=== PATIENT | male | born 1945 | race Caucasian/White ===

== ENCOUNTER 2016-08-20 18:12 | Inpatient (IN) | payer MEDICARE, OTHER ==
[~2016-08-20] VITALS: Ht 188 cm; Wt 85.3 kg
[2016-08-20] MEDS ORDERED: MAG HYDROX/AL HYDROX/SIMETH 30 ML UDC PO PRN (22:00)
[2016-08-20] MEDS ORDERED: ACETAMINOPHEN 325 MG TABLET PO PRN (22:00)
[2016-08-20] MEDS ORDERED: MAGNESIUM HYDROXIDE 30 ML UDC PO PRN (22:00)
--- NOTE | 2016-08-20 22:00 | NUR ---
GPS SENIOR PUBLICATIONS SPECIALIST NOTES: ADMITTED A 71 YEAR OLD MALE FROM [facility] ON 5150 HOLD FOR DANGER TO OTHERS (DTO). PER HOLD THE PATIENT IS DIAGNOSED TO HAVE BRAIN CANCER AND HIS TREATMENT IS MESSING WITH HIM AND ADMITS THAT HE NEEDS HELP. SON LIVES WITH PATIENT AND THAT PATIENT WANTS TO LEAVE HOME, WHEN ASKED WHERE TO, PATIENT STATED "LEAVE MY WAY OR I'LL PUNCH YOU", PATIENT PUT SON IN HEADLOCK WHICH THE SON GOT OUT OF, PATIENT THEN TRIED TO JUMP OUT OF THE [place] WHICH WAS STOPPED BY THE SON. PATIENT CAME INTO THE UNIT ESCORTED BY AMBULANCE STAFF. PATIENT'S AND SON WAS ALSO WITH HIM DURING THE TRANSPORT. HE WAS THEN USHERED TO HIS BED. PATIENT IS AMBULATORY. UPON FACE TO FACE EVALUATION, PATIENT IS ALERT AND ORIENTED X2-3, APPEARS UNKEMPT, DISHEVELED AND DISORGANIZED. HYPERVERBAL AT TIMES. ABLE TO STATE HIS DATE, CURRENT YEAR AND PRESIDENT, THE REASON FOR BEING ADMITTED HERE IN THE PSYCHE UNIT. SKIN AND BODY ASSESSMENT DONE WITH JOVANNA PINEDA. PATIENT IS CLEAR OF ANY WOUNDS OR REDNESS. ODETTE CATH ON RIGHT UPPER CHEST NOTED, PICTURE TAKEN AND PLACED IN THE CHART. BELONGINGS AND CONTRABAND CHECKED. PATIENT WAS ABLE TO SIGN ADMISSION PAPERS. ORIENTATION TO UNIT, STAFF AND CARE PLAN DONE. PATIENT EXPRESSED THAT HE DOES NOT WANT ANY VISIT, TELEPHONE CALL FROM THE AND THE SON, HE ALSO WISHED TO HAVE NO INFORMATION DISCLOSED TO AND SON. HE JUST WANTS HIS BEST FRIEND SHANT LUDWIG AND SISTER JES PEREZ TO KNOW OF THIS ADMISSION. PATIENT THEN INFORMED THAT WE WILL RELAY THE SAID MATTER TO THE [facility] NURSE STAFF. Q15 MIN CHECKS INITIATED. TOILETRIES PROVIDED. PROVIDED FOOD AND SNACKS. KEPT PATIENT WARM, DRY AND COMFORTABLE. WILL MONITOR PATIENT FOR MOOD SAFETY AND BEHAVIOR. WILL ENDORSE PATIENT TO DAY SHIFT NURSE FOR CONTINUITY OF CARE. Addendum: 08/21/16 at 0632 by ABDULKADIR BERNARDO MRSA DONE. DR. DE LA FUENTE AND DR MCKINNON INFORMED OF THE ADMISSION.
[2016-08-20] MEDS ORDERED: LORAZEPAM 0.5 MG TABLET ONE (23:28)
--- NOTE | 2016-08-20 23:30 | NUR ---
GPS RN: PATIENT REQUESTED FOR ATIVAN MEDICATION. HE STATED " I AM USED TO TAKING THE SAID MEDICATION AT HOME" QC MANAGER- LOBO OVERRIDE ATIVAN 0.5 MG FROM [facility]. ADMISSIONS COORDINATOR GAVE THE ORDERED MEDICATION TO PATIENT. WILL MONITOR PATIENT AND THE EFFECTIVENESS OF THE MEDICATION.
[2016-08-20] MEDS: LORAZEPAM 0.5 MG TABLET PO PRN (23:35)
[2016-08-21 02:14] VITALS: BP 151/84
[2016-08-21] MEDS ORDERED: DEXA4TAB PO (03:38)
[2016-08-21] MEDS ORDERED: TEMO20CA14 PO (03:38)
[2016-08-21] MEDS ORDERED: CITA40TA11 PO (03:38)
[2016-08-21] MEDS ORDERED: LORA2TAB PO (03:38)
[2016-08-21 07:05] LABS: ALBUMIN 3.3 g/dL (3.4-5.0); BILIRUBIN,TOTAL 0.6 mg/dL (0.2-1.0); CALCIUM, SERUM 8.8 mg/dL (8.5-10.1); CREATININE 0.5 mg/dL (0.6-1.3); POTASSIUM 3.7 mmol/L (3.5-5.1); TOTAL PROTEIN, SERUM 6.3 g/dL (6.4-8.2)
[2016-08-21 08:00] VITALS: BP 117/67
[2016-08-21] MEDS: LORAZEPAM 0.5 MG TABLET PO PRN ×2 (08:44→16:05)
--- NOTE | 2016-08-21 08:44 | NUR ---
[id number]: PT IS OBSERVED TO BE ANXIOUS, RESTLESS, EASILY IRRITABLE. GAVE ATIVAN 0.5 MG PO DUE TO INCREASED ANXIETY UPON PT REQUEST AND WILL CONTINUE TO MONITOR FOR EFFECTIVENESS OF MEDICATION. ESCORTED PT TO ROOM. DECREASE EXTERNAL STIMULI. PROVIDE A QUIET AND CALM ENVIRONMENT TO PROMOTE SLEEP.
--- NOTE | 2016-08-21 10:00 | NUR ---
[id number]: NOTIFIED PHYSICIAN CEMENT FITTINGS MAKER CATIE THAT WILL INFORMED DR. LAZO ABOUT LAB VALUES ON 08/21/16: CREATININE=0.5, TOTAL PROTEIN= 6.3, ALBUMIN= 3.3 AND PT NEEDS MED RECON TO BE DONE.
[2016-08-21] MEDS: DIVALPROEX SODIUM 125 MG CAP.SPRINK PO SCH ×2 (13:32→16:05)
--- NOTE | 2016-08-21 15:55 | NUR ---
[id number]: NOTIFIED DR. LAZO ABOUT LAB RESULTS ON 08/21/16: CREATININE= 0.5, TOTAL PROTEIN= 6.3, ALBUMIN= 3.3. NO NEW ORDERS AT THIS TIME
[2016-08-21 16:00] VITALS: BP 110/75
[2016-08-21] MEDS ORDERED: TEMOZOLOMIDE 20 MG PO SCH (16:00)
[2016-08-21] MEDS: OLANZAPINE 5 MG/TAB.RAPDIS PO SCH (16:05)
--- NOTE | 2016-08-21 16:05 | NUR ---
[id number]: GAVE ATIVAN 0.5 MG PO DUE TO SEVERE ANXIETY UPON PT REQUEST AND WILL CONTINUE TO MONITOR FOR EFFECTIVENESS OF MEDICATION.
--- NOTE | 2016-08-21 16:48 | NUR ---
[id number]: NOTIFIED DR. LAZO THAT EX- OF PT SAID PT IS NOT TAKING TEMOZOLOMIDE 20 MG PO UNTIL PT GETS A MRI NEXT WEEK AND DR. LAZO DISCONTINUE THE MEDICATION.
[2016-08-21] MEDS ORDERED: DEXAMETHASONE 4 MG TABLET PO SCH (17:00)
--- NOTE | 2016-08-21 17:14 | NUR ---
[id number]: PT IS A/O X4 AND ABLE TO MAKE DECISIONS FOR HIMSELF. PT REQUESTED STAFF TO TRIM HIS HAIR.
--- NOTE | 2016-08-21 17:17 | NUR ---
[id number]: NOTIFIED EX- GE THAT PT IS REQUESTING TO TRIM HAIR. PT'S EX- GE SAID, "ITS OK."
[2016-08-21 21:10] VITALS: BP 98/57
--- NOTE | 2016-08-21 23:00 | NUR ---
GPS RN: DR. LAUREN VEE CAME TO THE UNIT, INFORMED REGARDING THE PATIENT'S MEDICATION DECADRON 1MG EVERY OTHER DAY RELAYED BY THE . PER DR. VEE, DAY SHIFT NURSE TO CALL THE MED RECONER AND HAVE THE MED RECONER CALL THE PHARMACY REGARDING THE SAID MEDICATION. WILL RELAY THE SAID INFORMATION TO THE DAY SHIFT NURSE.
[2016-08-22] MEDS: LORAZEPAM 0.5 MG TABLET PO PRN ×2 (05:06→14:39)
[2016-08-22 07:21] LABS: BASOPHILS % (AUTO) 0.1 % (0.0-2.0); EOSINOPHILS % (AUTO) 0.2 % (0.0-6.0); HEMATOCRIT 43 % (39-51); HEMOGLOBIN 14.9 g/dL (13.5-17.5); LYMPHOCYTES # (AUTO) 1.1 /CMM (0.8-4.8); LYMPHOCYTES % (AUTO) 13.8 % (20.0-44.0); MEAN CORPUSCULAR HEMOGLOBIN 31 PG (26.0-33.0); MEAN CORPUSCULAR HGB CONC 34 g/dl (31.0-36.0); MEAN CORPUSCULAR VOLUME 90 fL (80-96); MONOCYTES # (AUTO) 0.4 /CMM (0.1-1.30); MONOCYTES % (AUTO) 5.2 % (2.0-12.0); NEUTROPHILS # (AUTO) 6.3 /CMM (1.8-8.9); NEUTROPHILS % (AUTO) 80.7 % (43.0-81.0); PLATELET COUNT (AUTO) 221 /CMM (150-450); RDW COEFFICIENT OF VARIATION 13.5 (11.5-15.0); RED BLOOD CELL COUNT(AUTO) 4.82 MIL/uL (4.5-6.0); WHITE BLOOD COUNT (AUTO) 7.8 K/uL (4.3-11.0)
[2016-08-22 07:27] LABS: CREATININE 0.8 mg/dL (0.6-1.3); POTASSIUM 3.4 mmol/L (3.5-5.1)
--- NOTE | 2016-08-22 07:30 | NUR ---
ON AM ROUNDS FIND PT. PLEASANT ,COOPERATIVE,IN GOOD SPIRITS.VS STABLE.
[2016-08-22 08:05] VITALS: BP 109/58
[2016-08-22] MEDS: NICOTINE PATCH (21MG) 21 MG PATCH.TD24 TD SCH (09:31)
[2016-08-22] MEDS: DIVALPROEX SODIUM 125 MG CAP.SPRINK PO SCH ×3 (09:32→17:50)
[2016-08-22] MEDS: OLANZAPINE 5 MG/TAB.RAPDIS PO SCH ×2 (09:32→17:50)
[2016-08-22] MEDS ORDERED: POTASSIUM CHLORIDE 20 MEQ TAB.PRT.SR PO ONE (10:00)
--- NOTE | 2016-08-22 11:51 | NUR ---
DR. LAZO CALLED WANTS DECADRON DOSE AND FREQ. LOWERED.RN CHANGED ORDER.
--- NOTE | 2016-08-22 12:00 | NUR ---
EX- GE CALLING AND SOC. SERVICE MADE AWARE TO HAVE PSYCH TALK TO HER.FELICIA SOC. WORKER STATES SHE WILL INFORM DR. DE LA FUENTE.
--- NOTE | 2016-08-22 14:34 | NUR ---
Initial discharge plan: Pt. resides in [place] with [place] [address] [place] [address] and wants to return but does not want his son to be staying with him any longer. Pt. states that he wants his son out of his house and is willing to agree to home health and to hire a caregiver to help him with daily chores. SW will speak with family Harjeet Taylor [phone], Qamar Tayolr [phone], Yvette [phone] and will arrange for safe and proper discharge.
--- NOTE | 2016-08-22 14:39 | NUR ---
MEDICATED FOR NERVOUSNESS WITH ATIVAN.
--- NOTE | 2016-08-22 15:00 | NUR ---
DR. DE LA FUENTE,DR. LAZO IN TO SEE PT.
--- NOTE | 2016-08-22 15:10 | NUR ---
DR. DE LA FUENTE AND DR. LAZO INFORMED THAT PT,S EX- WANTS PT,S ONCOLOGIST DR. PIMENTEL CALLED.
--- NOTE | 2016-08-22 15:17 | NUR ---
LIA spoke with pt's daughter/dpoa Harjeet Taylor [phone] and she asked for a letter confirming the patient is in the hospital. Cosby agreed to fax her dpoa paperwork and was provided a direct phone number for the psychosocial rehabilitation counselor to contact in case she had more questions or requests. Cosby agreed that her brother won't be in the house when pt. leaves the hospital and can go home alone.
[2016-08-22 16:00] VITALS: BP 105/67
[2016-08-22 20:00] VITALS: BP 109/73
[2016-08-23 07:27] LABS: CHOLESTEROL 156 mg/dL (<200); HDL CHOLESTEROL 52 mg/dL (40-60); LDL 87 mg/dL (0-99); TRIGLYCERIDES 66 mg/dL (30-150)
[2016-08-23 08:00] VITALS: BP 113/66
[2016-08-23] MEDS: OLANZAPINE 5 MG/TAB.RAPDIS PO SCH ×2 (08:42→16:41)
[2016-08-23] MEDS: DIVALPROEX SODIUM 125 MG CAP.SPRINK PO SCH ×3 (08:42→16:40)
[2016-08-23] MEDS: NICOTINE PATCH (21MG) 21 MG PATCH.TD24 TD SCH (08:42)
[2016-08-23] MEDS: DEXAMETHASONE 1 MG TABLET PO SCH (08:43)
[2016-08-23] MEDS: LORAZEPAM 0.5 MG TABLET PO PRN ×2 (14:54→22:17)
--- NOTE | 2016-08-23 15:22 | NUR ---
Pt. was referred and not accepted to [address] [address] per Jerry at the facility. Denial was due to not having enough criteria.
--- NOTE | 2016-08-23 15:23 | NUR ---
LIA spoke with son, Qamar Taylor [phone] and ex-, Yvette [phone] who both were concerned about pt. going home alone. LIA spoke with them at length and though they understand that pt. may have to return back home, they would like him to stay long enough at the hospital to be as stabilized as possible.
--- NOTE | 2016-08-23 15:25 | NUR ---
SW spoke with the patient and pt. agrees to be placed in a facility at this time. SW will continue looking for an appropriate facility.
[2016-08-23 16:00] VITALS: BP 126/79
--- NOTE | 2016-08-23 19:30 | NUR ---
GPS RN NOTE, RECEIVED PATIENT AWAKE AND IN BED, NO S/S OR COMPLAINTS OF PAIN AT THIS TIME. PATIENT IS DISPLAYING NO S/S OF APPARENT DISTRESS AT THIS TIME. PATIENT BREATHING IS UNLABORED WITH EQUAL RISE AND FALL OF THE CHEST. PATIENT IS ALERT AND ORIENTED X 2-3 ON ROOM AIR WITH A SPO2 99%. PATIENT COMPLAINT WITH MEDICATION, BRIGHT DISPOSITION, ANXIOUS, AND NEEDS REORIENTATION. PATIENT DENIES SUICIDE AND HOMICIDAL IDEATIONS AT THIS TIME. PATIENT ASSISTED WITH TURNING AND REPOSITIONING Q2HR AND PRN FOR COMFORT AND CIRCULATION. PATIENT HAS NO NEEDS AT THIS TIME. PATIENT EDUCATED ON THE USE OF THE CALL ANDERSON. PATIENT BED SIDE RAILS UP X2 FOR SAFETY, BED IS LOCKED AND LOW WILL CONTINUE TO MONITOR AND MAINTAIN SAFETY.
[2016-08-23 20:00] VITALS: BP_SYST 118; BP_SYST 124; BP_DIAS 72; BP_DIAS 78
--- NOTE | 2016-08-23 22:17 | NUR ---
GPS RN NOTE, PATIENT HAS A COMPLAINT OF FEELING ANXIOUS AND WOULD LIKE MEDICATION TO HELP CALM HIM DOWN. PATIENT VITAL SIGNS ARE STABLE. GAVE ATIVAN 0.5MG PO Q6HR PRN ORDERED. WILL REASSESS FOR ANXIETY AND I WILL CONTINUE TO MONITOR THIS PATIENT.
[2016-08-24 08:00] VITALS: BP 123/67
[2016-08-24] MEDS: OLANZAPINE 5 MG/TAB.RAPDIS PO SCH ×3 (08:28→16:37)
[2016-08-24] MEDS: DIVALPROEX SODIUM 125 MG CAP.SPRINK PO SCH ×3 (08:28→16:37)
[2016-08-24] MEDS: NICOTINE PATCH (21MG) 21 MG PATCH.TD24 TD SCH (08:28)
--- NOTE | 2016-08-24 15:07 | NUR ---
Pt. was referred to [facility] [address] [place] [address] . Per Laureen from the facility, pt. can be accepted if family is willing to drive him to his cancer treatments and provide the medications that he needs to be taking for treatment. They will follow up with the family and will confirm
--- NOTE | 2016-08-24 15:09 | NUR ---
Pt. was also referred to [facility] [place] [address] . Per Dean from facility, pt. will be assessed on Saturday and they will speak with the family before they confirm admission.
[2016-08-24 16:00] VITALS: BP 105/67
[2016-08-24] MEDS ORDERED: FIXODENT 1 EA TUBE MM PRN (17:00)
[2016-08-24 20:00] VITALS: BP 103/78
[2016-08-24] MEDS: LORAZEPAM 0.5 MG TABLET PO PRN (22:44)
[2016-08-25 06:30] LABS: BASOPHILS % (AUTO) 0.3 % (0.0-2.0); EOSINOPHILS # (AUTO) 0.2 /CMM (0.0-0.7); EOSINOPHILS % (AUTO) 2.5 % (0.0-6.0); HEMATOCRIT 47 % (39-51); HEMOGLOBIN 15.7 g/dL (13.5-17.5); LYMPHOCYTES # (AUTO) 1.2 /CMM (0.8-4.8); LYMPHOCYTES % (AUTO) 15.4 % (20.0-44.0); MEAN CORPUSCULAR HEMOGLOBIN 31 PG (26.0-33.0); MEAN CORPUSCULAR HGB CONC 34 g/dl (31.0-36.0); MEAN CORPUSCULAR VOLUME 91 fL (80-96); MONOCYTES # (AUTO) 0.6 /CMM (0.1-1.30); MONOCYTES % (AUTO) 7.5 % (2.0-12.0); NEUTROPHILS % (AUTO) 74.3 % (43.0-81.0); PLATELET COUNT (AUTO) 198 /CMM (150-450); RDW COEFFICIENT OF VARIATION 13.6 (11.5-15.0); RED BLOOD CELL COUNT(AUTO) 5.12 MIL/uL (4.5-6.0); WHITE BLOOD COUNT (AUTO) 8.1 K/uL (4.3-11.0)
[2016-08-25 06:52] LABS: ALBUMIN 3.3 g/dL (3.4-5.0); BILIRUBIN,TOTAL 0.5 mg/dL (0.2-1.0); CALCIUM, SERUM 9.3 mg/dL (8.5-10.1); CREATININE 0.8 mg/dL (0.6-1.3); POTASSIUM 4.9 mmol/L (3.5-5.1); TOTAL PROTEIN, SERUM 6.5 g/dL (6.4-8.2)
[2016-08-25 08:00] VITALS: BP 136/71
[2016-08-25] MEDS: DEXAMETHASONE 1 MG TABLET PO SCH (08:14)
[2016-08-25] MEDS: NICOTINE PATCH (21MG) 21 MG PATCH.TD24 TD SCH (08:14)
[2016-08-25] MEDS: OLANZAPINE 5 MG/TAB.RAPDIS PO SCH ×3 (08:14→16:46)
[2016-08-25] MEDS: DIVALPROEX SODIUM 125 MG CAP.SPRINK PO SCH ×3 (08:14→21:43)
[2016-08-25] MEDS: LORAZEPAM 0.5 MG TABLET PO PRN ×2 (14:53→22:36)
--- NOTE | 2016-08-25 14:55 | NUR ---
GPS RN NOTE: PATIENT FEELING RESTLESS AND ANXIOUS REQUESTING MEDICATIONS ATIVAN 0.5 MG PO PRN GIVEN PER ORDER WILL CONTINUE MONITORING FOR SAFETY AND BEHAVIOR Q 15 MIN
[2016-08-25 15:56] VITALS: BP 104/65
[2016-08-25 20:00] VITALS: BP 107/70
[2016-08-26 08:00] VITALS: BP 112/70
[2016-08-26] MEDS: NICOTINE PATCH (21MG) 21 MG PATCH.TD24 TD SCH (08:23)
[2016-08-26] MEDS: DIVALPROEX SODIUM 125 MG CAP.SPRINK PO SCH ×3 (08:23→21:44)
[2016-08-26] MEDS: OLANZAPINE 5 MG/TAB.RAPDIS PO SCH ×3 (08:23→16:45)
[2016-08-26 16:00] VITALS: BP 123/78
[2016-08-26 20:03] VITALS: BP 113/74
[2016-08-26] MEDS: LORAZEPAM 0.5 MG TABLET PO PRN (21:45)
[2016-08-27 08:00] VITALS: BP 108/69
[2016-08-27] MEDS: DIVALPROEX SODIUM 125 MG CAP.SPRINK PO SCH ×3 (08:01→20:34)
[2016-08-27] MEDS: NICOTINE PATCH (21MG) 21 MG PATCH.TD24 TD SCH (08:01)
[2016-08-27] MEDS: OLANZAPINE 5 MG/TAB.RAPDIS PO SCH ×3 (08:02→16:05)
[2016-08-27] MEDS: DEXAMETHASONE 1 MG TABLET PO SCH (08:06)
--- NOTE | 2016-08-27 09:47 | NUR ---
LIA left a voicemail for Qamar Taylor [phone], pt's son, to get an update about whether facilities have contacted him, and also to see if he is willing to transport the patient from the [facility] to his appointments and back and also provide the medication that he is on right now. Will follow up again
--- NOTE | 2016-08-27 09:53 | NUR ---
LIA received a voicemail from Eloise at [facility] [address] [place] [id number] regarding the patient's possible acceptance. LIA called back but she was in a meeting and LIA left a voicemail. LIA also spoke with Dean from the facility who said pt's daughter did not want the patient to be placed.
--- NOTE | 2016-08-27 10:07 | NUR ---
LIA spoke with pt's daughter/dpoa Harjeet Taylor [phone] who states that there was a miscommunication when speaking with the facility, [facility] [address] [place] [address] as they told her that her father was being discharged there that day. She agrees with the discharge to the facility if they accept but wanted time to talk about transportation to and from pt's appointments and medications and call the rn social services back. LIA spoke with Dean from the facility and told him to call Harjeet again. will follow up
--- NOTE | 2016-08-27 15:49 | NUR ---
Dean from [facility] [address] [place] [address] came to assess the patient and after he left the building he confirmed that pt. can be accepted. SW will notify the family.
[2016-08-27 16:00] VITALS: BP 133/82
[2016-08-27 20:14] VITALS: BP 133/77
[2016-08-27] MEDS: LORAZEPAM 0.5 MG TABLET PO PRN (20:32)
[2016-08-28] MEDS: LORAZEPAM 0.5 MG TABLET PO PRN (02:05)
[2016-08-28 08:00] VITALS: BP 126/72
[2016-08-28] MEDS: NICOTINE PATCH (21MG) 21 MG PATCH.TD24 TD SCH (08:03)
[2016-08-28] MEDS: OLANZAPINE 5 MG/TAB.RAPDIS PO SCH ×2 (08:03→12:42)
[2016-08-28] MEDS: DIVALPROEX SODIUM 125 MG CAP.SPRINK PO SCH ×2 (08:28→12:41)
--- NOTE | 2016-08-28 09:47 | NUR ---
LIA spoke with pt's daughter/dpoa Harjeet Taylor [phone] who agreed with the discharge to [facility] [address] [place] [address] and pt. will be discharged there today at 2:00PM. LIA notified Dr. Can that Harjeet requested to speak with her, and Dr. Can called and spoke with her. Per Dr. Can, pt's daughter agreed with the discharge.
--- NOTE | 2016-08-28 11:50 | NUR ---
Discharge note: Pt. will discharge to [facility] [address] [place] [address] at 2:00PM via [facility]. Pt's daughter/dpelizabeth Taylor [phone] was notified and after speaking with family, agreed with the discharge plan. Pt. is a smoker, hence, was referred to [facility] on at 1:00 PM. Pt. was provided a phone number ([phone] PIN: [phone] ) to call and was given instructions as it is a telephone meeting. Pt. will be in a rehab and stated that telephone meeting will be more appropriate. Pt. agreed with discharge plan, is calm and cooperative, alert and oriented x4, and denied suicidal/homicidal ideations and hallucinations.
--- NOTE | 2016-08-28 14:15 | NUR ---
[id number]: PT IS 71 YEARS OLD MALE IN DISCHARGE TO [facility] [address] [place] [address], IN STABLE CONDITION. COMPLAINT WITH MEDICATIONS, COOPERATIVE WITH TREATMENT PLANS. PT DENIES SI/HI AND INSTRUCTED TO GO TO THE CLOSEST ER IF DEVELOPING SI/HI. BEHAVIOR IMPROVED, PSYCHIATRIC TX PLANS MET, MEDICAL TX PLANS DEFERRED FOR CONTINUAL MONITORING. EDUCATED PT ABOUT AFTER CARE PLAN AND COPY PROVIDED. RETURNED PERSONAL BELONGINGS TO PT. MEDICATIONS RECONCILED WITH DR. DE LA FUENTE AND DR. KELSEY. REPORT GIVEN TO NAJMA OLIVARES IN [facility] FOR CONTINUITY OF CARE. PT SIGNED ALL PAPERWORK AND COMPUTER DOCUMENTATION DONE. SKIN ASSESSMENT DONE. PT LEFT THE UNIT ACCOMPANIED BY AMBULANCE STAFF.
== END 2016-08-28 14:15 | DRG 885 ==
LOC: GPS 21:02
PROVIDERS: ADMIT Psychiatry & Neurology Psychosomatic Medicine; ATTEND Nurse Practitioner Acute Care
DX: F31.9 Bipolar disorder, unspecified (principal); F41.0 Panic disorder [episodic paroxysmal anxiety]; F39 Unspecified mood [affective] disorder; Z85.841 Personal history of malignant neoplasm of brain; Z92.3 Personal history of irradiation
CPT/HCPCS: 36415; 80048-TC; 80053-TC; 80061-TC; 80164-TC; 85025-TC; 87081-TC; J8540